=== PATIENT | female | born 1960 | race Caucasian/White ===

== ENCOUNTER 2016-06-16 05:28 | Outpatient (CLI) | payer MEDICARE, MEDICAID | END 2016-06-16 05:29 | disposition short-term general hospital (02) | DX: R07.9 Chest pain, unspecified (principal); R06.02 Shortness of breath; R11.0 Nausea; R42 Dizziness and giddiness | CPT/HCPCS: A0425; A0427 ==

== ENCOUNTER 2016-06-27 08:42 | Outpatient (CLI) | payer MEDICARE, MEDICAID | END 2016-06-27 08:43 | disposition home or self-care (01) | DX: R10.12 Left upper quadrant pain (principal) ==

== ENCOUNTER 2016-06-28 14:37 | Outpatient (CLI) | payer MEDICARE, MEDICAID | END 2016-06-28 14:38 | disposition home or self-care (01) | DX: K80.20 Calculus of gallbladder without cholecystitis without obstruction (principal) ==

== ENCOUNTER 2016-06-29 18:22 | Emergency (ER) | payer MEDICARE, MEDICAID ==
[2016-06-29] MEDS ORDERED: KETOROLAC 60 MG/2 ML VIAL IVP STA (19:24)
[2016-06-29] MEDS ORDERED: cefTRIAXone 1 GM in SODIUM CHLORIDE 0.9% MINIBAG 100 ML IV STA (19:25)
[2016-06-29] MEDS ORDERED: DICYCLOMINE 10 MG CAPSULE PO STA (19:25)
[2016-06-29] MEDS ORDERED: KETOROLAC 30 MG/ML VIAL ONE (19:46)
[2016-06-29] MEDS ORDERED: DICYCLOMINE 10 MG CAPSULE PO ONE (19:46)
[2016-06-29] MEDS ORDERED: cefTRIAXone 1 GM VIAL ONE (19:47)
== END 2016-06-29 20:57 | disposition home or self-care (01) ==
DX: K80.50 Calculus of bile duct without cholangitis or cholecystitis without obstruction (principal); R10.11 Right upper quadrant pain; R10.13 Epigastric pain
CPT/HCPCS: 36415; 80053; 83690; 85025; 96365; 96375; 99283; 99284; A9270

== ENCOUNTER 2016-07-06 15:11 | Outpatient (CLI) | payer MEDICARE, MEDICAID | END 2016-07-06 15:12 | disposition home or self-care (01) | DX: M47.812 Spondylosis without myelopathy or radiculopathy, cervical region (principal); M50.30 Other cervical disc degeneration, unspecified cervical region; R07.89 Other chest pain ==

== ENCOUNTER 2016-08-28 09:10 | Emergency (ER) | payer MEDICARE, MEDICAID | END 2016-08-28 10:16 | disposition home or self-care (01) | DX: M50.30 Other cervical disc degeneration, unspecified cervical region (principal); I10 Essential (primary) hypertension; J45.909 Unspecified asthma, uncomplicated; F17.200 Nicotine dependence, unspecified, uncomplicated ==

== ENCOUNTER 2016-08-28 10:31 | Outpatient (CLI) | payer MEDICARE, MEDICAID | END 2016-08-28 10:32 | disposition home or self-care (01) | DX: M51.34 Other intervertebral disc degeneration, thoracic region (principal); M41.84 Other forms of scoliosis, thoracic region ==

== ENCOUNTER 2017-07-02 12:52 | Emergency (ER) | payer MEDICARE, MEDICAID ==
--- NOTE | 2017-07-02 14:03 | XRAY Report ---
EXAM: CHEST RADIOGRAPHY EXAM DATE: 07/02/2017 01:53 PM. CLINICAL HISTORY: Chest pain, cough, epigastric pain, cant eat. COMPARISON: 04/07/2012. TECHNIQUE: 2 views. FINDINGS: Lungs/Pleura: Hyperexpanded with coarse lung markings compatible with asthma or COPD. No localized in filtrate, consolidation, effusion, or pneumothorax. Mediastinum: Heart and mediastinal contours are unremarkable. Upper lobe vessels not distended. Other: Scoliosis, degenerative changes. No free intraperitoneal air. IMPRESSION: No acute disease. [facility] Referring Provider Line: [phone] SITE ID: [id number]
--- NOTE | 2017-07-02 15:15 | ED Physician Documentation ---
PD HPI URI - Stated complaint Stated Complaint: COUGH,ABD DISCOMFORT - Chief complaint Chief Complaint: Resp - History obtained from History obtained from: Patient - History of Present Illness Timing - onset: How many weeks ago (1) Timing duration: Weeks (1) Timing details: Gradual onset, Still present Associated symptoms: Chills, Nasal congestion, Dry cough, Chest pain ( anteriorly with coughing), NVD (having upper abd pain with eating and coughing, with nausea and unable to keep food down. Has been taking fluids without vomiting. She feels stomach discomfort with food and feels it does not get out of stomach. he is still urinating normal amount and says it is not dark.) Contributing factors: No: Sick contact, Travel Similar symptoms before: Has not had sx before Recently seen: Not recently seen Review of Systems Constitutional: reports: Fever, Chills, Myalgias, Fatigue Nose: reports: Congestion. denies: Rhinorrhea / runny nose Throat: denies: Sore throat Cardiac: reports: Chest pain / pressure (hurts in sternal area with coughing). denies: Palpitations, Pedal edema, Calf pain Respiratory: reports: Dyspnea, Cough GI: reports: Abdominal Pain (epigastric since being sick. was not having problems prior.), Nausea, Vomiting. denies: Abdominal Swelling, Diarrhea : denies: Dysuria, Frequency Musculoskeletal: denies: Neck pain, Back pain Neurologic: reports: Generalized weakness. 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 - Present Medications Home Medications: Ambulatory Orders Medication Instructions Recorded Confirmed Dextroamphetamine/Amphetamine 30 mg PO DAILY 10/21/12 08/28/16 [Adderall 15 mg Tablet] lamoTRIgine [Lamictal] 300 mg PO HS 10/21/12 08/28/16 Albuterol Sulf [Ventolin Hfa 1 - 2 puffs INH Q4HR PRN #1 inhaler 07/02/17 Inhaler] Benzonatate [Tessalon] 100 mg PO TID PRN #25 capsule 07/02/17 Dexamethasone [Decadron] 4 mg PO DAILY #5 tablet 07/02/17 Famotidine [Pepcid] 20 mg PO ONCE #20 tablet 07/02/17 Ondansetron Odt [Zofran] 4 mg TL Q6H PRN #15 tablet 07/02/17 - Allergies Allergies/Adverse Reactions: Allergies Allergy/AdvReac Type Severity Reaction Status Date / Time Penicillins Allergy Itching Verified 07/02/17 13:11 tomato Allergy Rash Verified 07/02/17 13:11 - Social History Does the pt smoke?: Yes Smoking Status: Current every day smoker Does the pt drink ETOH?: No Does the pt have substance abuse?: No - Immunizations Immunizations are current?: Yes Immunizations: TDAP current <10years PD ED PE NORMAL - Vitals Vital signs reviewed: Yes - General General: Alert and oriented X 3, No acute distress, Well developed/nourished - HEENT HEENT: Ears normal, Moist mucous membranes, Pharynx benign - Neck Neck: Supple, no meningeal sign, No adenopathy - Cardiac Cardiac: RRR, No murmur - Respiratory Respiratory: Clear bilaterally - Abdomen Abdomen: Normal bowel sounds, Soft, Non distended, No organomegaly, Other ( tender epigastric area without guarding nor percussion tenderness. Rest of abd not tender. ) - Back Back: No CVA TTP - Derm Derm: Normal color, Warm and dry - Neuro Neuro: Alert and oriented X 3, No motor deficit, Normal speech Results - Vitals Vitals: Oxygen O2 Source Room air - EKG (time done) 13:10 Rate: Rate (enter#) (70) Rhythm: NSR [place]: Normal Intervals: Normal [place] Ischemia: Normal ST segments. No: ST elevation c/w ischemia, ST depression PD MEDICAL DECISION MAKING - ED course Complexity details: reviewed results, re-evaluated patient (stomach feels better with PO meds. ), considered differential, d/w patient Departure - Departure Disposition: 01 Home, Self Care Clinical Impression: Wheezing Upper respiratory infection Qualifiers: URI type: unspecified URI Qualified Code(s): J06.9 - Acute upper respiratory infection, unspecified Gastritis Qualifiers: Gastritis type: other gastritis Chronicity: acute Gastritis bleeding: without bleeding Qualified Code(s): K29.00 - Acute gastritis without bleeding Vomiting Qualifiers: Vomiting type: unspecified Vomiting Intractability: non-intractable Nausea presence: without nausea Qualified Code(s): R11.11 - Vomiting without nausea Condition: Stable Record reviewed to determine appropriate education?: Yes Instructions: ED URI Viral W Wheezing Prescriptions: Albuterol Sulf [Ventolin Hfa Inhaler] 1 - 2 puffs INH Q4HR PRN #1 inhaler PRN Reason: Shortness Of Air/Wheezing Benzonatate [Tessalon] 100 mg PO TID PRN #25 capsule PRN Reason: Cough Dexamethasone [Decadron] 4 mg PO DAILY #5 tablet Famotidine [Pepcid] 20 mg PO ONCE #20 tablet Ondansetron Odt [Zofran] 4 mg TL Q6H PRN #15 tablet PRN Reason: Nausea / Vomiting Comments: Frequent fluids to maintain good hydration. Use ondansetron if needed for nausea. It sounds like her stomach has gotten irritated from being sick in possibly aspirin or other irritants. Do not use any aspirin or ibuprofen. Use antacids such as Maalox or Mylanta or Tums. Decreases stomach acid production with famotidine daily for couple of weeks. For the cough and upper respiratory infection, use albuterol inhaler 2 puffs 4 times a day for the next 7-10 days and then as needed. Also use Decadron steroid for inflammation of the bronchioles to decrease cough and wheezing and take this daily for 5 more days. Use Tessalon if needed for cough. Recheck if not improving over the next 2-3 days. Discharge Date/Time: 07/02/17 17:09
[2017-07-02] MEDS ORDERED: ONDANSETRON ODT 4 MG TABLET TL STA (15:45)
[2017-07-02] MEDS ORDERED: ALBUTEROL NEB 2.5 MG/3 ML INH STA (15:45)
[2017-07-02] MEDS ORDERED: BENZONATATE 100 MG CAPSULE PO STA (15:45)
[2017-07-02] MEDS ORDERED: MAG HYDROX/AL HYDROX/SIMETH 30 ML UDC PO STA (15:45)
[2017-07-02] MEDS ORDERED: DEXAMETHASONE 10 MG/ML VIAL PO STA (15:45)
[2017-07-02 17:10] VITALS: BP 149/78
== END 2017-07-02 17:09 | disposition home or self-care (01) ==
LOC: ED 12:52
DX: R06.2 Wheezing (principal); J06.9 Acute upper respiratory infection, unspecified; K29.00 Acute gastritis without bleeding; R11.11 Vomiting without nausea; R94.31 Abnormal electrocardiogram [ECG] [EKG]; I10 Essential (primary) hypertension; F17.200 Nicotine dependence, unspecified, uncomplicated
CPT/HCPCS: 71046; 93005; 94640; 94664; 99283; A9270; Q0162

== ENCOUNTER 2017-08-16 08:00 | Outpatient (CLI) | payer MEDICARE, MEDICAID | END 2017-08-16 23:59 | disposition home or self-care (01) | LOC: LAB.N 08:00 | PROVIDERS: ATTEND Family Medicine | DX: I10 Essential (primary) hypertension (principal); Z53.9 Procedure and treatment not carried out, unspecified reason ==

== ENCOUNTER 2017-08-21 08:00 | Outpatient (CLI) | payer MEDICARE, MEDICAID ==
[2017-08-21 12:54] LABS: BASOPHILS % (AUTO) 0.7 %; EOSINOPHILS # (AUTO) 0.1 10^3/uL (0.0-0.7); EOSINOPHILS % (AUTO) 1.1 %; HGB - HEMOGLOBIN 13.9 g/dL (12.0-16.0); LYMPHOCYTES # (AUTO) 1.9 10^3/uL (1.5-3.5); LYMPHOCYTES % (AUTO) 27.3 %; MEAN CORPUSCULAR HEMOGLOBIN 30.4 pg (27.0-31.0); MEAN CORPUSCULAR HGB CONC 34.2 g/dL (32.0-36.0); MEAN CORPUSCULAR VOLUME 88.9 fL (81.0-99.0); MEAN PLATELET VOLUME 8.4 fL (7.9-10.8); MONOCYTES # (AUTO) 0.4 10^3/uL (0.0-1.0); NEUTROPHILS # (AUTO) 4.5 10^3/uL (1.5-6.6); NEUTROPHILS % (AUTO) 64.9 %; PLT - PLATELET COUNT 193 10^3/uL (130-450); RED BLOOD COUNT 4.57 10^6/uL (4.20-5.40); RED CELL DISTRIBUTION WIDTH 12.4 % (12.0-15.0); WHITE BLOOD COUNT 6.9 x10^3/uL (4.8-10.8)
[2017-08-21 13:18] LABS: ALBUMIN 4.4 g/dL (3.2-5.5); ALBUMIN/GLOBULIN RATIO 1.3 (1.0-2.2); ALKALINE PHOSPHATASE 73 IU/L (42-121); ALT ALANINE AMINOTRANSFERASE 75 IU/L (10-60); AST ASPARTATE AMINOTRANSFERASE 86 IU/L (10-42); BILIRUBIN,TOTAL 0.5 mg/dL (0.2-1.0); BUN - BLOOD UREA NITROGEN 11 mg/dL (6-20); CALCIUM 9.4 mg/dL (8.5-10.3); CARBON DIOXIDE - CO2 25 mmol/L (21-32); CHLORIDE 101 mmol/L (101-111); CHOLESTEROL 155 mg/dL; CREATININE 0.8 mg/dL (0.4-1.0); GFR - MDRD 74 (>89); GLUCOSE 94 mg/dL (70-100); HDL CHOLESTEROL 77 mg/dL; LDL CHOLESTEROL,CALCULATED 68 mg/dL; LDL/HDL RATIO 0.9 (<4.4); SODIUM 134 mmol/L (135-145); TOTAL PROTEIN 7.8 g/dL (6.7-8.2); VLDL CHOLESTEROL 10 mg/dL
== END 2017-08-21 08:01 | disposition home or self-care (01) ==
LOC: LAB.N 08:00
PROVIDERS: ATTEND Family Medicine
DX: I10 Essential (primary) hypertension (principal)
CPT/HCPCS: 36415; 80053; 80061; 83721; 84443; 85025

== ENCOUNTER 2017-09-16 14:32 | Outpatient (CLI) | payer MEDICARE, MEDICAID ==
[2017-09-16 19:34] LABS: BILIRUBIN,DIRECT 0.1 mg/dL (0.1-0.5); BILIRUBIN,TOTAL 0.7 mg/dL (0.2-1.0); TOTAL PROTEIN 7.7 g/dL (6.7-8.2)
[2017-09-18 19:10] LABS: HEPATITIS C ANTIBODY REACTIVE (NON-REACTIVE)
[2017-09-19 13:48] LABS: HEPATITIS B SURFACE ANTIGEN NON-REACTIVE (NON-REACTIVE)
[2017-09-20 20:10] LABS: HCV RNA QNT 6.84 Log IU/mL (NOT DETECTED); HCV RNA QUANT RT PCR 6940000 IU/mL (NOT DETECTED)
== END 2017-09-16 14:33 ==
LOC: LAB.N 14:32
PROVIDERS: ATTEND Family Medicine
DX: R74.0 Nonspecific elevation of levels of transaminase and lactic acid dehydrogenase [LDH] (principal)
CPT/HCPCS: 36415; 80076; 83540; 84466; 86317; 86704; 86709; 86803; 87340; 87522

== ENCOUNTER 2017-10-31 10:56 | Outpatient (CLI) | payer MEDICARE, MEDICAID ==
--- NOTE | 2017-10-31 12:13 | Ultrasound Report ---
Procedure Date: 10/31/2017 Accession Number: [id number] / [id number] Procedure: US - Abdomen Limited CPT Code: FULL RESULT: EXAM: Abdomen Limited DATE: 10/31/2017 11:53 AM CLINICAL HISTORY: HEPATITIS C,ABDOMINAL PAIN,RIGHT UPPER QUADRANT COMPARISON: 06/28/2016 TECHNIQUE: Real-time scanning was performed with static images obtained. FINDINGS: Liver is echogenic, compatible with known hepatitis C. It measures 15.9 cm. No focal lesion is appreciated. The common bile duct measures 4 mm. The gallbladder again demonstrates cholelithiasis. Additionally, there is adenomyomatosis of the gallbladder wall. No gallbladder wall thickening or pericholecystic fluid is present. The right kidney measures 10.1 cm and demonstrates no hydronephrosis. No free fluid. IMPRESSION: Cholelithiasis. Echogenic liver. No biliary obstruction. [facility]
== END 2017-10-31 10:57 | disposition home or self-care (01) ==
LOC: DI 10:56
PROVIDERS: ATTEND Family Medicine
DX: B19.20 Unspecified viral hepatitis C without hepatic coma (principal); R10.11 Right upper quadrant pain; K80.20 Calculus of gallbladder without cholecystitis without obstruction
CPT/HCPCS: 76705

== ENCOUNTER 2018-03-28 01:57 | Outpatient (CLI) | payer MEDICARE, MEDICAID | END 2018-03-28 01:58 | disposition critical access hospital (66) | LOC: EMS 01:57 | PROVIDERS: ATTEND Surgery | DX: R10.9 Unspecified abdominal pain (principal); R11.0 Nausea | CPT/HCPCS: A0425; A0427 ==

== ENCOUNTER 2018-03-28 02:16 | Emergency (ER) | payer MEDICARE, MEDICAID ==
--- NOTE | 2018-03-28 02:33 | ED Physician Documentation ---
PD HPI ABD PAIN - Stated complaint Stated Complaint: LUQ PAIN - Chief complaint Chief Complaint: Abd Pain - History obtained from History obtained from: Patient - History of Present Illness Timing - onset: Yesterday ( (03/27)) Timing - details: Gradual onset, Now resolved, Waxing and waning Pain level max: 8 Pain level now: 0 Quality: Pain Location: RUQ Radiation: Right flank Improved by: Other (no ameliorating factors) Worsened by: Other (no exacerbating factors) Associated symptoms: Nausea (resolved). No: Fever, Vomiting, Diarrhea, Constipation Similar symptoms before: Diagnosis (similar to previous episode of biliary colic, although tonight was significantly more severe) Recently seen: Not recently seen - Additional information Additional information: c/o episodic, waxing and waning RUQ pain since morning of 03/27. pain radiates around right flank to back and was without apparent exacerbating or ameliorating factors. Tonight, it became severe and she thus called 911. She was given aspiring en route, and patient says she thinks she also was given nitroglycerin (this was not mentioned on verbal medic report to ED RN), and shortly after ED arrival, her symptoms resolved completely. Review of Systems Constitutional: reports: Reviewed and negative Cardiac: reports: Reviewed and negative Respiratory: reports: Reviewed and negative GI: reports: Abdominal Pain, Nausea. 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 - Present Medications Home Medications: Ambulatory Orders Medication Instructions Recorded Confirmed Dextroamphetamine/Amphetamine 30 mg PO DAILY 10/21/12 03/28/18 [Adderall 15 mg Tablet] lamoTRIgine [Lamictal] 300 mg PO HS 10/21/12 03/28/18 Lisinopril 10 tab PO DAILY 03/28/18 03/28/18 - Allergies Allergies/Adverse Reactions: Allergies Allergy/AdvReac Type Severity Reaction Status Date / Time Penicillins Allergy Itching Verified 03/28/18 02:22 tomato Allergy Rash Verified 03/28/18 02:22 - Social History Does the pt smoke?: Yes Smoking Status: Current every day smoker Does the pt drink ETOH?: No Does the pt have substance abuse?: No - Immunizations Immunizations are current?: Yes Immunizations: TDAP current <10years - POLST Patient has POLST: No PD ED PE NORMAL - Vitals Vital signs reviewed: Yes - General General: Alert and oriented X 3, No acute distress, Well developed/nourished - HEENT HEENT: Moist mucous membranes - Cardiac Cardiac: RRR, No murmur - Respiratory Respiratory: No respiratory distress, Clear bilaterally - Abdomen Abdomen: Normal bowel sounds, Soft, Non tender, Non distended, No organomegaly - Back Back: No CVA TTP - Derm Derm: Normal color, Warm and dry Results - Vitals Vitals: Vital Signs - 24 hr 03/28/18 03/28/18 03/28/18 02:18 03:37 04:58 Temperature 36.0 C L 36.1 C L Heart Rate 71 60 61 Respiratory 16 16 14 Rate Blood Pressure 187/103 H 187/97 H 148/89 H O2 Saturation 98 100 100 03/28/18 05:20 Temperature 36.3 C L Heart Rate 62 Respiratory 16 Rate Blood Pressure 142/86 H O2 Saturation 100 Oxygen O2 Source Room air - EKG (time done) No standard instances Rate: Rate (enter#) (66) Rhythm: NSR [place]: Normal Intervals: Normal [place] QRS: LVH Ischemia: Normal ST segments Computer interpretation: Disagree with computer (NSR (not atrial fibrillation)) - Labs Labs: Laboratory Tests 03/28/18 03/28/18 03/28/18 02:30 02:30 02:30 WBC 5.7 RBC 3.90 L Hgb 12.4 Hct 34.8 L MCV 89.0 MCH 31.8 H MCHC 35.7 RDW 12.1 Plt Count 166 MPV 7.7 L Neut # (Auto) 4.0 Lymph # (Auto) 1.3 L [place] # (Auto) 0.3 Eos # (Auto) 0.0 Baso # (Auto) 0.0 Absolute Nucleated RBC 0.00 Nucleated RBC % 0.0 Sodium 134 L Potassium 3.4 L Chloride 97 L Carbon Dioxide 28 Anion Gap 9.0 BUN 13 Creatinine 0.7 Estimated GFR (MDRD) 86 L Glucose 109 H Calcium 8.8 Total Bilirubin 0.5 AST 89 H ALT 94 H Alkaline Phosphatase 105 Troponin I Total Protein 7.3 Albumin 4.0 Globulin 3.3 Albumin/Globulin Ratio 1.2 Amylase 1192 H* Lipase 1045 H Urine Color Urine Clarity Urine pH Ur Specific [place] Urine Protein Urine Glucose (UA) Urine Ketones Urine Occult Blood Urine Nitrite Urine Bilirubin Urine Urobilinogen Ur Leukocyte Esterase Urine RBC Urine WBC Ur Squamous Epith Cells Urine Bacteria Ur Microscopic Review Urine Culture Comments 03/28/18 03/28/18 02:30 03:30 WBC RBC Hgb Hct MCV MCH MCHC RDW Plt Count MPV Neut # (Auto) Lymph # (Auto) [place] # (Auto) Eos # (Auto) Baso # (Auto) Absolute Nucleated RBC Nucleated RBC % Sodium Potassium Chloride Carbon Dioxide Anion Gap BUN Creatinine Estimated GFR (MDRD) Glucose Calcium Total Bilirubin AST ALT Alkaline Phosphatase Troponin I < 0.04 Total Protein Albumin Globulin Albumin/Globulin Ratio Amylase Lipase Urine Color YELLOW Urine Clarity CLEAR Urine pH 8.0 H Ur Specific [place] <=1.005 Urine Protein NEGATIVE Urine Glucose (UA) NEGATIVE Urine Ketones NEGATIVE Urine Occult Blood NEGATIVE Urine Nitrite NEGATIVE Urine Bilirubin NEGATIVE Urine Urobilinogen 0.2 (NORMAL) Ur Leukocyte Esterase MODERATE H Urine RBC 0-5 Urine WBC 6-10 H Ur Squamous Epith Cells FEW Squamous Urine Bacteria Few Ur Microscopic Review INDICATED Urine Culture Comments INDICATED - Rads (name of study) CT A/P Radiology: Prelim report reviewed, See rad report PD MEDICAL DECISION MAKING - ED course Complexity details: reviewed old records, reviewed results, re-evaluated patient, considered differential, d/w patient ED course: I performed bedside US which appears to show multiple gallstones. Patient has significantly elevated lipase and amylase and thus CT A/P performed. Per radiologist's interpretation, the pancreas is normal. No definite gallstone is identified. There is gallbladder distention and pericholecystic fluid, as well as hyperemia in the neck of the gallbladder and cystic duct. Her AST and ALT are minimally elevated, and comparable to previous results. Patient remained asymptomatic during ED stay and declined pain medication and declined antinauseants. She expresses that she wants to go home to take care of her parrot. D/W Dr. Nicholas Patel (restoration technician surgery for [facility]), agrees patient is safe and appropriate for discharge in light of her lack of symptoms and lack of tenderness on initial exam as well as on reevaluation prior to disposition. Patient is to f/u with surgery (Dr. Patel's contact information provided on discharge sheets), and she understand she needs to return to the ED immediately if her pain recurs or if she develops other concerning signs/symptoms such as, but not necessarily limited to, fever, vomiting, jaundice. Departure - Departure Disposition: 01 Home, Self Care Clinical Impression: Biliary colic Condition: Good Instructions: ED Gallstone W Biliary Colic Follow-Up: Nicholas Patel MD [Provider Admit Priv/Credential] - (Call this morning to arrange for follow up appointment (should be evaluated next week)) Discharge Date/Time: 03/28/18 05:23
[2018-03-28 02:45] LABS: BASOPHILS % (AUTO) 0.7 %; EOSINOPHILS % (AUTO) 0.8 %; HGB - HEMOGLOBIN 12.4 g/dL (12.0-16.0); LYMPHOCYTES # (AUTO) 1.3 10^3/uL (1.5-3.5); LYMPHOCYTES % (AUTO) 22.4 %; MEAN CORPUSCULAR HEMOGLOBIN 31.8 pg (27.0-31.0); MEAN CORPUSCULAR HGB CONC 35.7 g/dL (32.0-36.0); MEAN PLATELET VOLUME 7.7 fL (7.9-10.8); MONOCYTES # (AUTO) 0.3 10^3/uL (0.0-1.0); MONOCYTES % (AUTO) 4.8 %; NEUTROPHILS % (AUTO) 71.3 %; PLT - PLATELET COUNT 166 10^3/uL (130-450); RED CELL DISTRIBUTION WIDTH 12.1 % (12.0-15.0); WHITE BLOOD COUNT 5.7 x10^3/uL (4.8-10.8)
[2018-03-28 03:14] LABS: ALBUMIN/GLOBULIN RATIO 1.2 (1.0-2.2); BILIRUBIN,TOTAL 0.5 mg/dL (0.2-1.0); CALCIUM 8.8 mg/dL (8.5-10.3); CREATININE 0.7 mg/dL (0.4-1.0); TOTAL PROTEIN 7.3 g/dL (6.7-8.2)
[2018-03-28] MEDS ORDERED: IOVERSOL 320 50 ML VIAL ONE (03:37)
[2018-03-28 03:44] LABS: BILIRUBIN,URINE NEGATIVE (NEGATIVE); GLUCOSE, URINE (UA) NEGATIVE (NEGATIVE); KETONES,URINE (UA) NEGATIVE (NEGATIVE); LEUKOCYTE ESTERASE, URINE MODERATE (NEGATIVE); NITRITE,URINE NEGATIVE (NEGATIVE); OCCULT BLOOD,URINE NEGATIVE (NEGATIVE); PROTEIN,URINE NEGATIVE (NEGATIVE); UROBILINOGEN,URINE 0.2 (NORMAL) E.U./dL (NORMAL)
[2018-03-28 03:49] LABS: CLARITY,URINE CLEAR (CLEAR)
[2018-03-28 03:54] LABS: BACTERIA,URINE Few /HPF (None Seen); RBC,URINE 0-5 /HPF (0-5); SQUAMOUS EPITHELIAL CELL,UR FEW Squamous (<= Few)
[2018-03-28] MEDS: IOVERSOL 320 50 ML VIAL PO ONE (04:15)
--- NOTE | 2018-03-28 04:26 | CT Report ---
Reason: abd. pain Procedure Date: 03/28/2018 Accession Number: [id number] / [id number] Procedure: CT - Abdomen/Pelvis W/ CPT Code: FULL RESULT: EXAM: CT ABDOMEN AND PELVIS EXAM DATE: 03/28/2018 04:13 AM. CLINICAL HISTORY: Abd. pain. COMPARISONS: None. TECHNIQUE: Routine helical CT imaging was performed through the abdomen and pelvis. IV contrast: OPTI 320 100mL. Enteric contrast: No. Reconstructions: Coronal and sagittal. In accordance with CT protocol optimization, one or more of the following dose reduction techniques were utilized for this exam: automated exposure control, adjustment of mA and/or KV based on patient size, or use of iterative reconstructive technique. FINDINGS: Lung Bases: Unremarkable. Liver: Normal. No masses. Gallbladder/Bile Ducts: The gallbladder is distended and there is Jerod cholecystic fluid. The wall is not thickened. There are no definite gallstones. T there is mild intrahepatic biliary distention without any distention of the extrahepatic bile duct. There appears to be hyperemia, however, in the neck of the gallbladder and cystic duct. Spleen: Normal. Pancreas: Normal. Adrenal Glands: Normal. Kidneys: Normal. No masses or hydronephrosis. Peritoneal Cavity/Bowel: Normal. No free fluid, free air or adenopathy. No masses or acute inflammatory process. The appendix is well visualized and normal. Pelvic Organs: Uterus and adnexa have been resected. The bladder is distended. There are no inflammatory changes of the colon. No evidence for appendicitis. Vasculature: No aneurysms or other significant abnormality. Bones: No significant abnormality. Other: None. IMPRESSION: 1. Distended gallbladder and pericholecystic fluid. There appears to be hyperemia in the neck of the gallbladder and cystic duct. No definite gallstone is identified. [facility]
[2018-03-28 05:25] VITALS: BP 142/86
== END 2018-03-28 05:23 | disposition home or self-care (01) ==
LOC: EDUNIT# → ED 02:16
DX: K80.50 Calculus of bile duct without cholangitis or cholecystitis without obstruction (principal); I48.91 Unspecified atrial fibrillation; I10 Essential (primary) hypertension; F17.200 Nicotine dependence, unspecified, uncomplicated
CPT/HCPCS: 36415; 74177; 80053; 81001; 81003; 82150; 83690; 84484; 85025; 87086; 93005; 99283; 99284

== ENCOUNTER 2018-04-14 08:24 | Day surgery (SDC) | payer MEDICARE, MEDICAID ==
[~2018-04-14 08:24] MED LIST: ceFAZolin 2 GM/50 ML 2 GM/50 ML BAG IV ONE
[2018-04-14] MEDS ORDERED: LACTATED RINGERS 1,000 ML IV ONE ×2 (09:14→13:13)
--- NOTE | 2018-04-14 09:40 | ANESTHESIA ---
Pre-Anesthesia VS, & Labs - Diagnosis Acute cholelithiasis - Procedure Laparoscopic Cholecystectomy, possible IOC Vital Signs: Temp Pulse Resp BP Pulse Ox 36.2 C L 75 16 152/95 H 97 04/14/18 09:04 04/14/18 09:04 04/14/18 09:04 04/14/18 09:04 04/14/18 09:04 Height 5 ft 8 in Weight (kg) 59.9 kg Body Mass Index 25.3 - NPO >8 hours Last Fluid Intake: sips w/meds 0600 - Is Patient ?: No - Lab Results Lab results reviewed: Yes Home Medications and Allergies Dextroamphetamine/Amphetamine [Adderall 15 mg Tablet] 30 mg PO DAILY 10/21/12 lamoTRIgine [Lamictal] 300 mg PO HS 10/21/12 Lisinopril 10 tab PO DAILY 03/28/18 Allergies/Adverse Reactions: Allergies Allergy/AdvReac Type Severity Reaction Status Date / Time Penicillins Allergy Itching Verified 03/28/18 02:22 tomato Allergy Rash Verified 03/28/18 02:22 Anes History & Medical History - Anesthetic History Anesthesia Complications: reports: No previous complications Family history of Anesthesia Complications: Denies Family history of Malignant Hyperthermia: Denies - Medical History Cardiovascular: reports: Hypertension Pulmonary: reports: Asthma (rescue inhaler typically only used in the Fall) Gastrointestinal: reports: Hepatitis (reactive HepC Antibodies), Other Smoking Status: Current every day smoker - Surgical History Gynecologic: Tubal ligation, Hysterectomy Results - EKG Results EKG Comparison: Reviewed EKG, Normal EKG Exam General: Alert, Oriented x3, Cooperative Dental: Dentures full Upper, Dentures full Lower Mouth Openin Fingerbreadth Neck Mobility: Normal Mallampati classification: II Thyromental Distance: 4-6 cm Respiratory: Lungs clear, Normal breath sounds, No respiratory distress Cardiovascular: Regular rate Neurological: Normal speech Mental/Cognitive Status: Alert/Oriented X3 Cognitive Status: Within normal limits Plan Anesthesia Type: General Consent for Procedure(s) Verified and Reviewed: Yes Code Status: Attempt Resuscitation ASA classification: 2-Mild systemic disease Is this case an emergency?: No
[2018-04-14] MEDS ORDERED: BUPIVACAINE 0.5%-EPI 1:200000 PF 30 ML VIAL ONE (09:51)
[2018-04-14] MEDS ORDERED: IOTHALAMATE MEGLUMINE 50 ML VIAL ONE (10:48)
[2018-04-14] MEDS ORDERED: KETOROLAC 30 MG/ML VIAL IVP ONE (12:38)
[2018-04-14] MEDS ORDERED: fentaNYL 250 MCG/5 ML VIAL IVP ONE (12:38)
[2018-04-14] MEDS ORDERED: ePHEDrine 50 MG/ML VIAL IVP ONE (12:38)
[2018-04-14] MEDS ORDERED: ROCURONIUM 50 MG/5 ML VIAL IVP ONE (12:38)
[2018-04-14] MEDS ORDERED: ACETAMINOPHEN 1,000 MG/100 ML 100 ML IV ONE (12:38)
[2018-04-14] MEDS ORDERED: LIDOCAINE-MPF 2% 5 ML VIAL IM ONE (12:38)
[2018-04-14] MEDS ORDERED: PROPOFOL 200 MG/20 ML VIAL IVP ONE (12:38)
[2018-04-14] MEDS ORDERED: ceFAZolin 2 GM/50 ML 2 GM/50 ML BAG IV ONE (12:38)
[2018-04-14] MEDS ORDERED: ONDANSETRON 4 MG/2 ML VIAL IVP ONE (12:38)
[2018-04-14] MEDS ORDERED: oxyCODONE 5 MG TABLET PO PRN (12:53)
[2018-04-14] MEDS ORDERED: ACETAMINOPHEN 325 MG TABLET PO PRN (12:53)
[2018-04-14] MEDS ORDERED: ONDANSETRON 4 MG/2 ML VIAL IVP PRN (12:53)
[2018-04-14] MEDS ORDERED: IBUPROFEN 600 MG TABLET PO PRN (12:53)
--- NOTE | 2018-04-14 13:12 | XRAY Report ---
Reason: CHOLANGIOGRAMS IN OR 2 Procedure Date: 04/14/2018 Accession Number: [id number] / [id number] Procedure: FL - OR Cholangiogram CPT Code: FULL RESULT: EXAM: INTRAOPERATIVE CHOLANGIOGRAM EXAM DATE: 04/14/2018 11:11 AM. CLINICAL HISTORY: Cholangiograms in OR 2. COMPARISONS: None. TECHNIQUE: Dr. Nicholas Patel performed the procedure. Please see the operative notes for details. Fluoroscopy Time: 5 seconds. Number of Images: 1. FINDINGS IMPRESSION: A catheter has been placed into the cystic duct remnant following cholecystectomy. Cholangiography shows opacification of the bile ducts. Visualized ducts show no filling defects. Spill of contrast into the duodenum documented. [facility]
[2018-04-14] MEDS: HYDROmorphone 1 MG/ML CARPUJECT ONE ×2 (13:24→13:32)
[2018-04-14 14:51] VITALS: BP 147/85
--- NOTE | 2018-04-14 20:51 | OPERATIVE REPORT ---
DATE OF SERVICE: 04/14/2018 Physician: Nicholas Patel MD PREOPERATIVE DIAGNOSIS: Symptomatic gallbladder disease, recent biliary pancreatitis. POSTOPERATIVE DIAGNOSIS: Symptomatic gallbladder disease, recent biliary pancreatitis. PROCEDURE PERFORMED: Laparoscopic cholecystectomy with intraoperative cholangiograms. ANESTHESIA: General endotracheal by Dr. Culver. SURGEON: Nicholas Patel MD. ESTIMATED BLOOD LOSS: 20 mL. COMPLICATIONS: None. FINDINGS: Laparoscopy revealed a chronically mildly thickened gallbladder with mild pericholecystic adhesions. The gallbladder was largely intrahepatic. The liver had an abnormal appearance consistent with active hepatitis. The visualized portions of the stomach, small, large bowel and duodenum were otherwise within normal limits. Intraoperative cholangiogram showed free flow of contrast into the duodenum. No filling defects. There was a common channel anatomy with partial filling of the pancreatic duct noted. The quality of the study was good. Following resection, the gallbladder was seen to contain approximately fifty 1-2 mm mulberry type, dark green, mixed cholesterol type stones. INDICATIONS: Patient is a 57-year-old with a recent episode of biliary pancreatitis. Evaluation revealed multiple small stones in her gallbladder. She was advised to undergo laparoscopic cholecystectomy for definitive treatment and prevent recurrent episodes. She has known concurrent hepatitis C. TECHNIQUE: After informed consent, patient was taken to the operating room where she was placed under general endotracheal anesthesia. Preoperative preparation included application of sequential calf compression boots, administration of 2 grams cefazolin intravenously within an hour of the incision. Her abdomen was prepared with ChloraPrep solution and draped in the usual sterile fashion. Transverse incision was made along the inferior edge of the umbilicus and carried down through the layers of the abdominal wall until the peritoneum was identified and entered sharply. A 10 mm Elie cannula was inserted and pneumoperitoneum achieved with carbon dioxide. A 10 mm 30-degree Masha telescope was inserted. Laparoscopy was carried out with findings noted above. 5 mm ports were placed x3 in the right upper quadrant. Instruments were passed. Gallbladder was grasped and retracted in a cephalad and lateral direction, exposing the cystic triangle of [place]. This region was carefully dissected, isolating the cystic duct and artery adjacent to the gallbladder. The cystic duct was clipped adjacent to the gallbladder, incised distally with a clip. A taut cholangiogram catheter was inserted and semi-fluoro cholangiography was carried out with findings as noted above. A 50:50 mixture of Optiray and sterile saline was used. The quality of the study was good. There were no apparent complications. Approximately 20 mL of the mixture was used. The cholangiogram catheter was then removed, the cystic duct doubly clipped distally and then divided proximal to those clips. The cystic artery was divided between 2 sets of clips that were applied doubly proximally and distally, adjacent to the gallbladder. The gallbladder was then dissected to the liver bed using electrocautery for dissection and hemostasis. It was detached intact, placed in an organ retrieval bag, extracted, opened on a side table with findings noted above, and the tissue sent for pathologic evaluation. After hemostasis had been assured, the right upper quadrant was copiously irrigated with saline solution, following which instruments and cannulas were removed under direct vision. Pneumoperitoneum was allowed to escape, and the incisions were closed in layers using continuous 0 Vicryl to reapproximate the midline fascia at the umbilicus, followed by 4-0 Monocryl subcuticular skin closure at all the port sites, followed by Dermabond. A total of 20 mL of 0.5% Marcaine with epinephrine was infiltrated into the incision to assist in postoperative analgesia. Anesthesia was terminated. Patient transferred to the recovery room in satisfactory condition. Sponge and needle counts were correct x2. No drains were used. cc: Anthony Moore MD TD: 04/14/2018 13:12 ELISA
== END 2018-04-14 08:25 | disposition home or self-care (01) ==
LOC: SDS 08:24
PROVIDERS: ATTEND Internal Medicine Gastroenterology
PROC: BF130ZZ Fluoroscopy of Gallbladder and Bile Ducts using High Osmolar Contrast (ICD-10-PCS; 2018-04-14)
PROC: 0FT44ZZ Resection of Gallbladder, Percutaneous Endoscopic Approach (ICD-10-PCS; principal; 2018-04-14 09:45)
DX: K80.10 Calculus of gallbladder with chronic cholecystitis without obstruction (principal); I10 Essential (primary) hypertension; J45.909 Unspecified asthma, uncomplicated; F17.210 Nicotine dependence, cigarettes, uncomplicated; K85.10 Biliary acute pancreatitis without necrosis or infection; B19.20 Unspecified viral hepatitis C without hepatic coma
CPT/HCPCS: 47563; 74300; J0131; J0690; J1170; J3010; J7120; Q9961

== ENCOUNTER 2018-04-16 20:06 | Emergency (ER) | payer MEDICARE, MEDICAID ==
[2018-04-16 20:42] LABS: BILIRUBIN,URINE NEGATIVE (NEGATIVE); GLUCOSE, URINE (UA) NEGATIVE (NEGATIVE); KETONES,URINE (UA) NEGATIVE (NEGATIVE); LEUKOCYTE ESTERASE, URINE NEGATIVE (NEGATIVE); NITRITE,URINE NEGATIVE (NEGATIVE); OCCULT BLOOD,URINE NEGATIVE (NEGATIVE); PH,URINE 8.5 PH (5.0-7.5); PROTEIN,URINE NEGATIVE (NEGATIVE); UROBILINOGEN,URINE 0.2 (NORMAL) E.U./dL (NORMAL)
[2018-04-16 20:44] LABS: CLARITY,URINE CLEAR (CLEAR)
--- NOTE | 2018-04-16 21:07 | XRAY Report ---
Reason: short of breath Procedure Date: 04/16/2018 Accession Number: [id number] / [id number] Procedure: XR - Chest 2 View X-Ray CPT Code: 80699 FULL RESULT: EXAM: CHEST RADIOGRAPHY EXAM DATE: 04/16/2018 08:37 PM. CLINICAL HISTORY: Short of breath. COMPARISON: CHEST 2 VIEW 07/02/2017 1:43 PM. TECHNIQUE: 2 views. FINDINGS: Lungs/Pleura: No focal opacities evident. No pleural effusion. No pneumothorax. Normal volumes. Mediastinum: Heart and mediastinal contours are unremarkable. Other: Moderate right convexity thoracic scoliosis IMPRESSION: No acute pulmonary airspace process. Scoliosis. [facility]
[2018-04-16 21:43] LABS: BASOPHILS # (AUTO) 0.1 10^3/uL (0.0-0.1); BASOPHILS % (AUTO) 0.9 %; EOSINOPHILS # (AUTO) 0.2 10^3/uL (0.0-0.7); EOSINOPHILS % (AUTO) 2.7 %; HGB - HEMOGLOBIN 13.1 g/dL (12.0-16.0); LYMPHOCYTES # (AUTO) 1.3 10^3/uL (1.5-3.5); MEAN CORPUSCULAR HEMOGLOBIN 31.5 pg (27.0-31.0); MEAN CORPUSCULAR HGB CONC 34.6 g/dL (32.0-36.0); MEAN CORPUSCULAR VOLUME 91.1 fL (81.0-99.0); MEAN PLATELET VOLUME 7.6 fL (7.9-10.8); MONOCYTES # (AUTO) 0.4 10^3/uL (0.0-1.0); MONOCYTES % (AUTO) 6.2 %; NEUTROPHILS # (AUTO) 4.4 10^3/uL (1.5-6.6); NEUTROPHILS % (AUTO) 69.2 %; PLT - PLATELET COUNT 175 10^3/uL (130-450); RED BLOOD COUNT 4.17 10^6/uL (4.20-5.40); WHITE BLOOD COUNT 6.4 x10^3/uL (4.8-10.8)
[2018-04-16 21:52] LABS: ALBUMIN 4.4 g/dL (3.2-5.5); ALBUMIN/GLOBULIN RATIO 1.1 (1.0-2.2); BILIRUBIN,TOTAL 0.6 mg/dL (0.2-1.0); CALCIUM 9.3 mg/dL (8.5-10.3); CREATININE 0.8 mg/dL (0.4-1.0); TOTAL PROTEIN 8.3 g/dL (6.7-8.2)
--- NOTE | 2018-04-16 23:23 | ED Physician Documentation ---
History of Present Illness - Stated complaint Stated Complaint: SHARP PX IN UPPER RT SIDE - Chief complaint Chief Complaint: Abd Pain - History obtained from History obtained from: Patient, Family - History of Present Illness Timing: Yesterday - Additonal information Additional information: 57-year-old female had her gallbladder out here at the hospital 3 days ago she is now developed pain in her right flank area that happens in spasms and is associated with certain movements. She states it is a very specific area that hurts it is severe and if she lays down sometimes hurts more. She is more comfortable if she is standing and she has not slept since this operation. Review of Systems Constitutional: denies: Fever Eyes: denies: Decreased vision Ears: denies: Ear pain Nose: denies: Congestion Throat: denies: Sore throat Cardiac: denies: Chest pain / pressure, Palpitations Respiratory: reports: Cough. denies: Dyspnea GI: reports: Abdominal Pain. 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 - Present Medications Home Medications: Ambulatory Orders Medication Instructions Recorded Confirmed Dextroamphetamine/Amphetamine 30 mg PO DAILY 10/21/12 03/28/18 [Adderall 15 mg Tablet] lamoTRIgine [Lamictal] 300 mg PO HS 10/21/12 03/28/18 Lisinopril 10 tab PO DAILY 03/28/18 03/28/18 - Allergies Allergies/Adverse Reactions: Allergies Allergy/AdvReac Type Severity Reaction Status Date / Time Penicillins Allergy Itching Verified 04/16/18 20:18 tomato Allergy Rash Verified 04/16/18 20:18 - Social History Does the pt smoke?: Yes Smoking Status: Current every day smoker Does the pt drink ETOH?: No Does the pt have substance abuse?: No - Immunizations Immunizations are current?: Yes Immunizations: TDAP current <10years - POLST Patient has POLST: No PD ED PE NORMAL - Vitals Vital signs reviewed: Yes (hypertensive ) - General General: Alert and oriented X 3, Well developed/nourished, Other (The patient is in tears and winches every time she makes a sudden movement. ) - HEENT HEENT: Atraumatic, PERRL, EOMI - Neck Neck: Supple, no meningeal sign, No bony TTP - Cardiac Cardiac: RRR, No murmur, No gallop - Respiratory Respiratory: No respiratory distress, Clear bilaterally, Other (There is specific point tenderness to the posterior chest wall over the lower rib area on the right .) - Abdomen Abdomen: Soft, Non tender, Other (The incisions are healing well without inflammation. The umbilcal incision has some inferior surrounding erythema that is non-blancing like a bruise and the patient notes this is improved since this morning. 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, No motor deficit, No sensory deficit, Normal speech Eye Opening: Spontaneous Motor: Obeys Commands Verbal: Oriented GCS Score: 15 - Psych Psych: Normal mood, Normal affect Results - Vitals Vitals: Vital Signs - 24 hr 04/16/18 04/16/18 04/16/18 20:14 21:19 22:23 Temperature 36.5 C 37 C Heart Rate 88 75 94 Respiratory 20 18 22 Rate Blood Pressure 149/103 H 191/110 H 171/118 H O2 Saturation 100 100 100 04/16/18 04/17/18 23:52 00:58 Temperature Heart Rate 72 76 Respiratory 16 16 Rate Blood Pressure 153/87 H 196/104 H O2 Saturation 96 100 Oxygen O2 Source Room air - Labs Labs: Laboratory Tests 04/16/18 04/16/18 04/16/18 20:25 21:32 21:32 WBC 6.4 RBC 4.17 L Hgb 13.1 Hct 38.0 MCV 91.1 MCH 31.5 H MCHC 34.6 RDW 12.0 Plt Count 175 MPV 7.6 L Neut # (Auto) 4.4 Lymph # (Auto) 1.3 L Calvert # (Auto) 0.4 Eos # (Auto) 0.2 Baso # (Auto) 0.1 Absolute Nucleated RBC 0.01 Nucleated RBC % 0.2 Sodium 135 Potassium 4.1 Chloride 100 L Carbon Dioxide 28 Anion Gap 7.0 BUN 7 Creatinine 0.8 Estimated GFR (MDRD) 73 L Glucose 114 H Calcium 9.3 Total Bilirubin 0.6 AST 63 H ALT 70 H Alkaline Phosphatase 87 Total Protein 8.3 H Albumin 4.4 Globulin 3.9 Albumin/Globulin Ratio 1.1 Lipase 37 Urine Color YELLOW Urine Clarity CLEAR Urine pH 8.[address] 1.015 Urine Protein NEGATIVE Urine Glucose (UA) NEGATIVE Urine Ketones NEGATIVE Urine Occult Blood NEGATIVE Urine Nitrite NEGATIVE Urine Bilirubin NEGATIVE Urine Urobilinogen 0.2 (NORMAL) Ur Leukocyte Esterase NEGATIVE Ur Microscopic Review NOT INDICATED Urine Culture Comments NOT INDICATED - Rads (name of study) chest Radiology: Prelim report reviewed (Impression: No acute pulmonary airspace process. Scoliosis.), EMP read indepedently, Other Procedures - Bedside sono Bedside sono by EMP: With use of bedside ultrasound the right kidney is imaged there is no fluid accumulation there is no hydronephrosis and the kidney is sonographically nontender. - IVC sono (time) 7960 Bedside IVC sono: IVC measures (cm) (1.18), IVC collapsed c insp (cm) (complete), Dehydration (est 1 liter down) PD MEDICAL DECISION MAKING - ED course Complexity details: reviewed old records, reviewed results, re-evaluated patient, considered differential, d/w patient, d/w family ED course: 57-year-old female who had her gallbladder out 3 days ago has developed acute right flank muscle spasm. She is evaluated here in the emergency department and it turns out she was dehydrated with about a liter deficit demonstrated by interrogation of the inferior vena cava. She was administered a liter of saline and some Dilaudid and Zofran with marked improvement in her pain. She arrived to the emergency department appearing very uncomfortable and every time she moves she did have a severe spasm in her back this seems to have dissipated. The patient seems much happier now. She has pain medication at home. There is still some air under the diaphragm on the right side consistent with recent surgical procedure. I discussed this with the patient and this should resolve as well and may be part of the trigger for her spasms. Departure - Departure Disposition: 01 Home, Self Care Clinical Impression: Spasm of back muscles, Dehydration Condition: Stable Instructions: ED Spasm Back No Trauma, ED Dehydration Follow-Up: Anthony Moore MD [Primary Care Provider] - Nicholas Patel MD [Provider Admit Priv/Credential] - Discharge Date/Time: 04/17/18 01:00
[2018-04-16] MEDS: ONDANSETRON 4 MG/2 ML VIAL IVP STA (23:44)
[2018-04-16] MEDS: HYDROmorphone 1 MG/ML CARPUJECT IVP STA (23:44)
[2018-04-16] MEDS: SODIUM CHLORIDE 0.9% 1,000 ML IV ONE (23:44)
[2018-04-17 00:59] VITALS: BP 196/104
== END 2018-04-17 01:00 | disposition home or self-care (01) ==
LOC: ED 20:06
DX: M62.830 Muscle spasm of back (principal); E86.0 Dehydration; I10 Essential (primary) hypertension; K75.9 Inflammatory liver disease, unspecified; F17.200 Nicotine dependence, unspecified, uncomplicated
CPT/HCPCS: 36415; 71046; 80053; 81001; 81003; 83690; 85025; 87086; 96361; 96374; 99284

== ENCOUNTER 2018-11-04 18:41 | Emergency (ER) | payer MEDICARE, MEDICAID ==
--- NOTE | 2018-11-04 20:07 | ED Physician Documentation ---
PD HPI UPPER EXT INJURY - Stated complaint Stated Complaint: L FINGER LAC - Chief complaint Chief Complaint: Laceration - History obtained from History obtained from: Patient - History of Present Illness Location: Left, Finger (index) Type of injury: Laceration (cutting meat and accidentally cut her own finger tip. 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 - Present Medications Home Medications: Ambulatory Orders Medication Instructions Recorded Confirmed Dextroamphetamine/Amphetamine 30 mg PO DAILY 10/21/12 03/28/18 [Adderall 15 mg Tablet] lamoTRIgine [Lamictal] 300 mg PO HS 10/21/12 03/28/18 RX: Lisinopril 10 tab PO DAILY 03/28/18 03/28/18 - Allergies Allergies/Adverse Reactions: Allergies Allergy/AdvReac Type Severity Reaction Status Date / Time Penicillins Allergy Itching Verified 04/16/18 20:18 tomato Allergy Rash Verified 04/16/18 20:18 - Social History Does the pt smoke?: Yes Smoking Status: Current every day smoker Does the pt drink ETOH?: Yes Does the pt have substance abuse?: No - Immunizations Immunizations are current?: Yes Immunizations: TDAP current <10years - POLST Patient has POLST: No PD ED PE NORMAL - General General: Alert and oriented X 3, No acute distress, Well developed/nourished - Derm Derm: Normal color, Warm and dry - Extremities Extremities: Other (Left index fingertip has a oval-shaped laceration which extends to the subcutaneous tissue. There is some mild active bleeding. No foreign body seen. It is not at the nailbed nor at the IP joint.) - Neuro Neuro: Alert and oriented X 3, No motor deficit, No sensory deficit Results - Vitals Vitals: Vital Signs - 24 hr 11/04/18 11/04/18 18:52 20:29 Temperature 36.6 C 36.9 C Heart Rate 76 66 Respiratory 16 18 Rate Blood Pressure 172/94 H 173/96 H O2 Saturation 98 99 Oxygen O2 Source Room air PD MEDICAL DECISION MAKING - ED course Complexity details: considered differential (The bleeding had stopped at the time of the ER exam. We talked about sutures versus Steri-Strips and glue and she would prefer to try not sutures.), d/w patient Departure - Departure Disposition: 01 Home, Self Care Clinical Impression: Finger laceration Qualifiers: Encounter type: initial encounter Finger: index finger Damage to nail status: without damage Foreign body presence: without foreign body Laterality: left Qualified Code(s): S61.211A - Laceration without foreign body of left index finger without damage to nail, initial encounter Condition: Stable Record reviewed to determine appropriate education?: Yes Instructions: ED Laceration Ext Skin Glue Comments: Keep the area clean and dry. Allow the Steri-Strips and glue to fall off on their own over several days or so. Recheck if signs of infection. Tylenol or ibuprofen if needed for pains. Discharge Date/Time: 11/04/18 20:32
[2018-11-04 20:30] VITALS: BP 173/96
== END 2018-11-04 20:32 | disposition home or self-care (01) ==
LOC: ED 18:41
DX: S61.211A Laceration without foreign body of left index finger without damage to nail, initial encounter (principal); W26.0XXA Contact with knife, initial encounter; Y93.G1 Activity, food preparation and clean up; Y92.009 Unspecified place in unspecified non-institutional (private) residence as the place of occurrence of the external cause; I10 Essential (primary) hypertension; F17.200 Nicotine dependence, unspecified, uncomplicated
CPT/HCPCS: 99281; 99282

== ENCOUNTER 2019-07-08 08:00 | Outpatient (CLI) | payer MEDICARE, MEDICAID ==
[2019-07-08 12:21] LABS: BASOPHILS % (AUTO) 0.6 %; EOSINOPHILS % (AUTO) 0.5 %; HGB - HEMOGLOBIN 12.8 g/dL (12.0-16.0); LYMPHOCYTES # (AUTO) 1.3 10^3/uL (1.5-3.5); LYMPHOCYTES % (AUTO) 20.2 %; MEAN CORPUSCULAR HEMOGLOBIN 30.4 pg (27.0-31.0); MEAN CORPUSCULAR VOLUME 92.2 fL (81.0-99.0); MEAN PLATELET VOLUME 10.7 fL (7.9-10.8); MONOCYTES # (AUTO) 0.4 10^3/uL (0.0-1.0); MONOCYTES % (AUTO) 5.6 %; NEUTROPHILS # (AUTO) 4.7 10^3/uL (1.5-6.6); NEUTROPHILS % (AUTO) 72.8 %; PLT - PLATELET COUNT 176 10^3/uL (130-450); RED BLOOD COUNT 4.21 10^6/uL (4.20-5.40); RED CELL DISTRIBUTION WIDTH 11.9 % (12.0-15.0); WHITE BLOOD COUNT 6.5 x10^3/uL (4.8-10.8)
[2019-07-08 12:48] LABS: ALBUMIN 4.3 g/dL (3.2-5.5); ALBUMIN/GLOBULIN RATIO 1.2 (1.0-2.2); ALKALINE PHOSPHATASE 82 IU/L (42-121); ALT ALANINE AMINOTRANSFERASE 98 IU/L (10-60); AST ASPARTATE AMINOTRANSFERASE 91 IU/L (10-42); BILIRUBIN,TOTAL 0.7 mg/dL (0.2-1.0); BUN - BLOOD UREA NITROGEN 9 mg/dL (6-20); CALCIUM 9.6 mg/dL (8.5-10.3); CARBON DIOXIDE - CO2 26 mmol/L (21-32); CHLORIDE 105 mmol/L (101-111); CHOL/HDL RATIO 2.1 (<4.4); CHOLESTEROL 147 mg/dL; CREATININE 0.7 mg/dL (0.4-1.0); GFR - MDRD 85 (>89); GLUCOSE 101 mg/dL (70-100); HDL CHOLESTEROL 69 mg/dL; LDL CHOLESTEROL,CALCULATED 69 mg/dL; SODIUM 137 mmol/L (135-145); TOTAL PROTEIN 7.9 g/dL (6.7-8.2); VLDL CHOLESTEROL 9 mg/dL
[2019-07-10 14:44] LABS: HEPATITIS C ANTIBODY REACTIVE (NON-REACTIVE)
[2019-07-13 19:55] LABS: HCV RNA QNT 6.81 Log IU/mL (NOT DETECTED); HCV RNA QUANT RT PCR 6450000 IU/mL (NOT DETECTED)
== END 2019-07-08 23:59 | disposition home or self-care (01) ==
LOC: LAB.WCP 08:00
PROVIDERS: ATTEND Physician Assistant
DX: Z00.00 Encounter for general adult medical examination without abnormal findings (principal); I10 Essential (primary) hypertension; B19.20 Unspecified viral hepatitis C without hepatic coma
CPT/HCPCS: 36415; 80053; 80061; 83036; 83721; 84443; 85025; 86803

== ENCOUNTER 2019-07-20 16:47 | Outpatient (CLI) | payer MEDICARE, MEDICAID ==
--- NOTE | 2019-07-20 21:40 | MRI Report ---
Reason: CERVICAL RADICULOPATHY Procedure Date: 07/20/2019 Accession Number: [id number] / [id number] Procedure: MRI - Cervical Spine W/O CPT Code: Final Report FULL RESULT: EXAM: MRI CERVICAL SPINE WITHOUT CONTRAST EXAM DATE: 07/20/2019 05:47 PM. CLINICAL HISTORY: Cervical radiculopathy. COMPARISONS: Cervical spine radiographs 07/06/2016. TECHNIQUE: Multiplanar, multisequence T1-weighted and fluid-sensitive sequences of the cervical spine without contrast. Other: None. FINDINGS: No abnormal signal is present in the cervical spinal cord. There is marrow edema on the right involving the posterior elements at the cervicothoracic junction. There appears to be a segmentation anomaly involving the transverse process of the T1 vertebral body and the first rib on the right with presumably some pseudoarthrosis formation. There is a 4 mm cyst near the right facet joint which could be a subchondral cyst or synovial cyst. This does not significantly encroach upon the foramen. Grade 1 retrolisthesis of C5 relative to C6 and C6 relative to C7 is noted. Anterior disk protrusion, anterior osteophyte formation, and endplate irregularity are present at these levels. Buckling of ligamentum flavum is seen most evident at C5 and C6. C2-C3: No posterior disk protrusion. No stenosis. C3-C4: Facet hypertrophy is seen on the left. Bilateral uncovertebral joint spurring is seen. Mild left foraminal stenosis. Right foraminal narrowing. C4-C5: Left facet hypertrophy is seen. Bilateral uncovertebral joint spurring. Mild right and moderate left foraminal stenosis. Minimal posterior disk protrusion. Disk/osteophyte complex is seen involving the left posterior lateral margin of the disk. C5-C6: A mild to moderate posterior disk protrusion is seen. Disk/osteophyte complex formation is seen involving the posterior lateral margin of the disk bilaterally greater on the left. There is flattening of the left ventral cervical spinal cord, greater on the left relative to the right. Central canal measures 6-7 mm. Bilateral uncovertebral joint spurring is seen. Severe bilateral foraminal stenosis is noted. C6-C7: Mild to moderate posterior disk protrusion is seen. Disk/osteophyte complex formation is seen involving the posterior lateral margin of the disks bilaterally. There is bilateral uncovertebral joint spurring. Severe bilateral foraminal stenosis is present. Mild to moderate central canal stenosis is present. C7-T1: No posterior disk protrusion. No central canal or foraminal stenosis. IMPRESSION: 1. Degenerative disk disease, osteophyte formation, uncovertebral joint spurring, and buckling of ligamentum flavum result in central canal stenosis at C5-C6 and to a lesser degree at C6-C7. There is bilateral foraminal stenosis at these levels. There is mass effect on the ventral cervical spinal cord particularly on the left at C5-C6. 2. Bilateral foraminal stenosis is seen at C4-C5. 3. There is mild left foraminal stenosis at C3-C4. 4. Suspect a segmentation anomaly on the right at T1 with pseudoarthrosis formation present. RADIA
== END 2019-07-20 16:48 | disposition home or self-care (01) ==
LOC: DI 16:47
PROVIDERS: ATTEND Physician Assistant
DX: M47.812 Spondylosis without myelopathy or radiculopathy, cervical region (principal); M50.221 Other cervical disc displacement at C4-C5 level; M50.322 Other cervical disc degeneration at C5-C6 level; M48.02 Spinal stenosis, cervical region; M43.12 Spondylolisthesis, cervical region
CPT/HCPCS: 72141

== ENCOUNTER 2020-03-28 08:00 | Outpatient (CLI) | payer MEDICARE, MEDICAID | END 2020-03-28 23:59 | disposition home or self-care (01) | LOC: LAB.R 08:00 | PROVIDERS: ATTEND Nurse Practitioner Family | DX: R50.9 Fever, unspecified (principal); Z20.828 Contact with and (suspected) exposure to other viral communicable diseases | CPT/HCPCS: 87880; U0004 ==

== ENCOUNTER 2022-07-21 12:51 | Outpatient (CLI) | payer MEDICARE, MEDICAID ==
[2022-07-21 19:04] LABS: BASOPHILS # (AUTO) 0.1 10^3/uL (0.0-0.1); BASOPHILS % (AUTO) 0.6 %; EOSINOPHILS # (AUTO) 0.1 10^3/uL (0.0-0.7); EOSINOPHILS % (AUTO) 0.6 %; HCT - HEMATOCRIT 44.1 % (37.0-47.0); HGB - HEMOGLOBIN 14.8 g/dL (12.0-16.0); LYMPHOCYTES # (AUTO) 2.1 10^3/uL (1.5-3.5); MEAN CORPUSCULAR HEMOGLOBIN 30.7 pg (27.0-31.0); MEAN CORPUSCULAR HGB CONC 33.6 g/dL (32.0-36.0); MEAN CORPUSCULAR VOLUME 91.5 fL (81.0-99.0); MEAN PLATELET VOLUME 10.5 fL (7.9-10.8); MONOCYTES # (AUTO) 0.5 10^3/uL (0.0-1.0); MONOCYTES % (AUTO) 4.8 %; NEUTROPHILS # (AUTO) 6.7 10^3/uL (1.5-6.6); NEUTROPHILS % (AUTO) 71.8 %; PLT - PLATELET COUNT 191 10^3/uL (130-450); RED BLOOD COUNT 4.82 10^6/uL (4.20-5.40); RED CELL DISTRIBUTION WIDTH 11.9 % (12.0-15.0); WHITE BLOOD COUNT 9.4 x10^3/uL (4.8-10.8)
[2022-07-21 19:23] LABS: THYROID STIMULATING HORMONE 1.39 uIU/mL (0.34-5.60)
[2022-07-21 19:25] LABS: ALBUMIN 4.8 g/dL (3.2-5.5); ALBUMIN/GLOBULIN RATIO 1.3 (1.0-2.2); ALKALINE PHOSPHATASE 81 IU/L (42-121); ALT ALANINE AMINOTRANSFERASE 57 IU/L (10-60); AST ASPARTATE AMINOTRANSFERASE 53 IU/L (10-42); BILIRUBIN,TOTAL 0.8 mg/dL (0.2-1.0); BUN - BLOOD UREA NITROGEN 13 mg/dL (6-20); CALCIUM 9.9 mg/dL (8.5-10.3); CARBON DIOXIDE - CO2 26 mmol/L (21-32); CHLORIDE 105 mmol/L (101-111); CHOL/HDL RATIO 2.4 (<4.4); CHOLESTEROL 156 mg/dL; CREATININE 0.9 mg/dL (0.4-1.0); GFR - MDRD 63 (>89); GLUCOSE 99 mg/dL (70-100); HDL CHOLESTEROL 64 mg/dL; LDL CHOLESTEROL,CALCULATED 79 mg/dL; LDL/HDL RATIO 1.2 (<4.4); POTASSIUM 4.4 mmol/L (3.5-5.0); SODIUM 137 mmol/L (135-145); TOTAL PROTEIN 8.6 g/dL (6.7-8.2); TRIGLYCERIDES 67 mg/dL; VLDL CHOLESTEROL 13 mg/dL
[2022-07-25 17:08] LABS: HCV IU/ML 7970000 IU/mL (.); HCV LOG10 6.901 (.)
[2022-07-26 11:10] LABS: HCV AB Reactive (Non Reactive); HCV IU/ML See Final Results IU/mL (.); HCV LOG10 7.053 (.); HCV RNA IU/ML 11300000 IU/mL (.)
== END 2022-07-21 12:52 | disposition home or self-care (01) ==
LOC: LAB.N 12:51
PROVIDERS: ATTEND Physician Assistant
DX: I10 Essential (primary) hypertension (principal); B19.20 Unspecified viral hepatitis C without hepatic coma
CPT/HCPCS: 36415; 80053; 80061; 83721; 84443; 85025; 86803; 87522

== ENCOUNTER 2022-08-08 07:47 | Outpatient (CLI) | payer MEDICARE, MEDICAID ==
--- NOTE | 2022-08-08 09:31 | Ultrasound Report ---
PROCEDURE: Abdomen Limited INDICATIONS: HEP C, SINUSITIS TECHNIQUE: Real-time focused scanning was performed of the abdomen, with image documentation. COMPARISONS: CT abdomen pelvis 03/28/2018, Limited abdominal ultrasound 10/31/2017. FINDINGS: Liver: Increased liver echogenicity, commonly mild hepatic steatosis. Gallbladder: Absent. Biliary ducts: Intrahepatic bile ducts are non-dilated. Extrahepatic bile duct caliber measures 6 m m. Normal is 6-7 mm or less in diameter, or 10 mm or less post-cholecystectomy. Pancreas: Visualized portions of the pancreas are sonographically normal. Right kidney: Normal in size and echotexture. Right kidney measures 10.0 cm long. No hydronephrosis or nephrolithiasis. No solid masses. No complex renal cystic lesions which require follow-up. Aorta: Visualized aorta is normal in caliber at less than 3 cm. IVC: Intrahepatic inferior vena cava is patent. Miscellaneous: No free abdominal fluid. IMPRESSION: 1. The liver is echogenic, a nonspecific finding commonly seen in the setting of steatosis. 2. No suspicious focal liver lesion identified sonographically. 3. Prior cholecystectomy. Reviewed by: Ricky Hebert MD on 08/08/2022 9:29 AM PDT Approved by: Ricky Hebert MD on 08/08/2022 9:29 AM PDT Station ID: [id number]
--- NOTE | 2022-08-08 10:38 | CT Report ---
PROCEDURE: MAXILLOFACIAL WO INDICATIONS: sinusitis, chronic; chronic maxillary sinusitis TECHNIQUE: Noncontrast 1.5 mm thick axial images acquired from the mandible through the frontal sinuses, with co angelika and sagittal reformatting. For radiation dose reduction, the following was used: automated ex posure control, adjustment of mA and/or kV according to patient size. COMPARISON: None. FINDINGS: Image quality: Excellent. Bones and teeth: Orbital maciel are intact. Sinus maciel show no fracture or deformity. Nasal bones and septum are intact. Visualized portions of the mandible demonstrate no fractures or subluxation. Zygomatic arches are intact. Pterygoid plates are intact. Visualized portions of the skull base an d auditory canals are intact. Sinuses: Mild mucosal thickening in the right maxillary sinus measuring up to 3 mm. Otherwise paranas al sinuses are well aerated, without fluid levels, mucosal thickening, or mucoceles. Mastoid air marylou ls are aerated. There is leftward curvature of the nasal septum. Vesna cells are noted bilaterally. Soft tissues: No edema, masses, or fluid collections. No enlarged lymph nodes. No soft tissue lace rations or debris. Vascular: Visualized vascular structures appear normal in the absence of contrast. Bony vascular fo ramina and canals are intact. IMPRESSION: Mild maxillary sinus mucosal thickening. No other significant paranasal sinus disease. Reviewed by: Brett Downs on 08/08/2022 10:37 AM PDT Approved by: Brett Downs on 08/08/2022 10:37 AM PDT Station ID: [id number]
== END 2022-08-08 07:48 | disposition home or self-care (01) ==
LOC: DI 07:47
PROVIDERS: ATTEND Physician Assistant
DX: B19.20 Unspecified viral hepatitis C without hepatic coma (principal); J32.0 Chronic maxillary sinusitis; Z90.49 Acquired absence of other specified parts of digestive tract